=== PATIENT | male | born 1965 ===

== ENCOUNTER 2018-07-30 06:35 | Day surgery (SDC) | payer OTHER ==
[~2018-07-30 06:35] MED LIST: LIPITOR PO
[2018-07-30] MEDS ORDERED: NEURONTIN300 MG PO (11:30)
[2018-07-30] MEDS ORDERED: MIRALAX17 GM PO (11:30)
[2018-07-30] MEDS ORDERED: ULTRACET PO (11:30)
[2018-07-30] MEDS ORDERED: ZOFRAN ODT4 MG PO (11:30)
== END 2018-07-30 13:05 | disposition home or self-care (01) ==
LOC: CIR.AMB 06:35
DX: K40.90 Unilateral inguinal hernia, without obstruction or gangrene, not specified as recurrent (principal)